=== PATIENT | male | born 1945 | race Caucasian/White ===

== ENCOUNTER 2017-06-02 19:30 | Emergency (ER) | payer OTHER ==
[~2017-06-02] VITALS: Ht 172.7 cm; Wt 109.0 kg
[2017-06-02] MEDS ORDERED: SODIUM CHLORIDE 0.9% 1,000 ML IV ONE (19:58)
[2017-06-02] MEDS ORDERED: DILTIAZEM HCL 5MG/ML 5ML VIAL IV ONE (20:30)
[2017-06-02 20:43] LABS: HEMATOCRIT. 39.7 % (42.0-52.0); HEMOGLOBIN. 13.2 g/dL (14.0-18.0); MEAN CORPUSCULAR HEMOGLOBIN 28.1 pg (28.0-32.0); MEAN CORPUSCULAR VOLUME 84.1 fL (80.0-94.0); MEAN PLATELET VOLUME 9.4 fl (7.4-10.4); PLATELET 190 x1000/uL (130-400); RED BLOOD CELL COUNT 4.72 mill/uL (4.7-6.1); RED CELL DISTRIBUTION WIDTH 14.4 % (11.6-14.6)
[2017-06-02] MEDS ORDERED: DILTIAZEM HCL 60MG TABLET PO ONE (20:45)
[2017-06-02 20:46] LABS: INR 1.6; PROTHROMBIN TIME 16.5 sec (9.4-11.6)
[2017-06-02 21:00] LABS: CARBON DIOXIDE 25 mEq/L (21-32); CHLORIDE 103 mEq/L (98-107)
[2017-06-02 21:05] LABS: ATYPICAL LYMPHOCYTES 2; PLATELET ESTIMATE NORMAL
[2017-06-02 21:06] LABS: TROPONIN I < 0.02 ng/mL (0.00-0.04)
[2017-06-02 22:30] VITALS: BP 123/69
[2017-06-02 22:30] LABS: CLARITY URINE CLEAR (CLEAR); COLOR URINE YELLOW (YELLOW); KETONES URINE NEGATIVE (NEGATIVE); LEUKOCYTE ESTERASE URINE NEGATIVE (NEGATIVE); NITRITE URINE NEGATIVE (NEGATIVE); OCCULT BLOOD URINE NEGATIVE (NEGATIVE); PROTEIN URINE NEGATIVE (NEGATIVE); UROBILINOGEN URINE 0.2 E.U./dL (0.2-1.0)
== END 2017-06-02 23:29 | disposition home or self-care (01) ==
LOC: EDBD 20:10 → ER 20:10
DX: I48.91 Unspecified atrial fibrillation (principal); I10 Essential (primary) hypertension; R05 Cough; R06.02 Shortness of breath
CPT/HCPCS: 36415; 71045; 80053; 81001; 83605; 84484; 85025; 85610; 87040; 87086; 93005; 96374; 99285; J3490; J7030